=== PATIENT | female | born 1945 | race Caucasian/White ===

== ENCOUNTER 2020-09-12 12:20 | Emergency (ER) | payer MEDICARE, OTHER ==
[2020-09-12] MEDS ORDERED: Hydromorphone 1 mg/ml Injection IV ONE (12:38)
[2020-09-12] MEDS ORDERED: Zofran 4 MG/2 ML VIAL IV ONE (12:38)
[2020-09-12] MEDS ORDERED: TORAdol 30 mg Injection IV ONE (12:38)
[2020-09-12] MEDS ORDERED: Sodium Chloride 0.9% 1000 ML 1,000 ML IV STA (12:38)
--- NOTE | 2020-09-12 12:54 | ERPHSYRPT ---
- History of Present Illness Time Seen by Provider: 09/12/20 12:21 Source: patient Exam Limitations: no limitations Patient Subjective Stated Complaint: Pt states "about a quarter till noon I started to have horrible pain bilat groin. It mes[place]." Triage Nursing Assessment: Pt presented alert and oriented X 3, skin pwd Pt ambulates with an uprigth steady gait, able to speak in clear full sentences. Pt grunting occasionally. Physician History: Patient is here with lower abdominal pain and cramping. Patient states that this started earlier today. She describes it as a burning sensation. She has no falls or trauma. Some burning, pain with urination. Location: lower abdominal pain Quality: burning, cramping Radiation: none Severity: moderate Duration: earlier this morning Timing: gradual Modifying factors/associated signs and symptoms: none tried Timing/Duration: today Activites at Onset: eating, rest Quality: burning Onset Location: RLQ, LLQ Allergies/Adverse Reactions: celecoxib [From Celebrex] Allergy (Intermediate, Verified 09/12/20 12:43) Rash ciprofloxacin [From Cipro] Allergy (Intermediate, Verified 09/12/20 12:43) hives and swelling erythromycin base Allergy (Intermediate, Verified 09/12/20 12:43) nausea, dizzy levofloxacin Allergy (Intermediate, Verified 09/12/20 12:43) nauea, dizzy tramadol Allergy (Intermediate, Verified 09/12/20 12:43) Nausea zolpidem [From Ambien] Allergy (Intermediate, Verified 09/12/20 12:43) insomnia prednisone Adverse Reaction (Intermediate, Verified 09/12/20 12:43) anxiety roflumilast [From Daliresp] Adverse Reaction (Intermediate, Verified 09/12/20 12:43) Nausea Home Medications: Amlodipine Besylate [Norvasc] 5 mg PO DAILY 09/12/20 [History] Fluticasone/Umeclidin/Vilanter [Trelegy Ellipta 100-62.5-25] 1 tab PO DAILY 09/12/20 [History] Ipratropium/Albuterol Sulfate [Iprat-Albut 0.5-3(2.5) mg/3 ml] 3 ml IH DAILY 09/12/20 [History] Levothyroxine Sodium [Synthroid] 25 mcg PO DAILY 09/12/20 [History] Losartan Potassium [Cozaar] 100 mg PO DAILY 09/12/20 [History] Montelukast Sodium 10 mg [Singulair 10 MG] 10 mg PO DAILY 09/12/20 [History] Omeprazole 40 mg PO DAILY 09/12/20 [History] Promethazine HCl 25 mg PO DAILY 09/12/20 [History] Ropinirole HCl 1 mg PO DAILY 09/12/20 [History] Sertraline HCl 50 mg [Zoloft 50 mg Tablet] 50 mg PO DAILY 09/12/20 [History] Simvastatin 20 mg PO DAILY 09/12/20 [History] Warfarin Sodium [Jantoven] 5 mg PO DAILY 09/12/20 [History] Hx Tetanus, Diphtheria Vaccination/Date Given: Yes Hx Influenza Vaccination/Date Given: Yes Hx Pneumococcal Vaccination/Date Given: Yes Immunizations Up to Date: Yes Travel Risk - International Travel Have you traveled outside of the country in past 3 weeks: No - Coronavirus Screening Are you exhibiting any of the following symptoms?: No Close contact with a COVID-19 positive Pt in past 14-21 Days: No - Past Medical History Pertinent Past Medical History: Yes Neurological History: No Pertinent History ENT History: Cataracts Cardiac History: High Cholesterol, Hypertension Respiratory History: COPD Endocrine Medical History: Hypothyroidism Musculoskeletal History: No Pertinent History GI Medical History: GERD History: No Pertinent History Psycho-Social History: No Pertinent History Female Reproductive Disorders: No Pertinent History - Past Surgical History Past Surgical History: Yes Other Surgical History: hysterectomy. tonsils. ovarian cyst. appi. shoulder bone spur rumoved - Social History Smoking Status: Never smoker Exposure to second hand smoke: Yes Drug Use: none Patient Lives Alone: No - Review of Systems Constitutional: No Fever, No Chills Eyes: No Symptoms Ears, Nose, & Throat: No Symptoms Respiratory: No Cough, No Dyspnea Cardiac: No Chest Pain, No Edema, No Syncope Abdominal/Gastrointestinal: Abdominal Pain, Nausea, No Vomiting, No Diarrhea Genitourinary Symptoms: Dysuria Musculoskeletal: No Back Pain, No Neck Pain Skin: No Rash Neurological: No Dizziness, No Focal Weakness, No Sensory Changes Psychological: No Symptoms Endocrine: No Symptoms All Other Systems: Reviewed and Negative - Nursing Vital Signs Nursing Vital Signs: Initial Vital Signs Temperature 98.4 F 09/12/20 12:33 Pulse Rate 74 09/12/20 12:33 Respiratory Rate 20 09/12/20 12:33 Blood Pressure 193/72 09/12/20 12:33 O2 Sat by Pulse Oximetry 97 09/12/20 12:33 Pain Scale Pain Intensity 5 - Physical Exam General Appearance: no apparent distress, alert Eye Exam: PERRL/EOMI Ears, Nose, Throat Exam: pharynx normal, moist mucous membranes Neck Exam: normal inspection, supple Respiratory Exam: normal breath sounds, lungs clear Cardiovascular Exam: regular rate/rhythm, No edema Gastrointestinal/Abdomen Exam: soft, tenderness, other (mild lower abdominal tenderness) Back Exam: normal inspection, No CVA tenderness Extremity Exam: normal inspection, normal range of motion, No pedal edema Neurologic Exam: alert, oriented x 3, cooperative, sensation nml, No motor deficits Skin Exam: normal color, warm, dry, No rash SpO2: 97 - Course Nursing assessment & vital signs reviewed: Yes EKG Interpreted by Me: Sinus Rhythm Ordered Tests: Active Orders 24 hr Category Date Time Status EKG-ER Only STAT Care 09/12/20 12:38 Active IV Insertion STAT Care 09/12/20 12:38 Active ABDOMEN AND PELVIS W CONTRAST [CT] Stat Exams 09/12/20 12:39 Completed CHEST 2 VIEWS (PA AND LAT) Stat Exams 09/12/20 12:38 Completed AMYLASE Stat Lab 09/12/20 13:00 Completed CBC W DIFF Stat Lab 09/12/20 13:00 Completed CMP Stat Lab 09/12/20 13:00 Completed CULTURE,URINE Stat Lab 09/12/20 12:42 Received LIPASE Stat Lab 09/12/20 13:00 Completed Lactic Acid Stat Lab 09/12/20 12:38 Completed TROPONIN Q3H Lab 09/12/20 13:00 Completed TROPONIN Q3H Lab 09/12/20 15:45 Ordered TROPONIN Q3H Lab 09/12/20 18:45 Ordered TROPONIN Q3H Lab 09/12/20 21:45 Ordered TROPONIN Q3H Lab 09/13/20 00:45 Ordered UA W/RFX UR CULTURE Stat Lab 09/12/20 12:42 Completed Medication Summary Discontinued Medications Generic Name Dose Route Start Last Admin Trade Name Freq PRN Reason Stop Dose Admin Hydromorphone HCl 1 mg 09/12/20 12:38 09/12/20 12:59 Hydromorphone 1 Mg/Ml Injection IV 09/12/20 12:39 1 mg STAT ONE Administration Hydromorphone HCl Confirm 09/12/20 12:56 Hydromorphone 1 Mg/Ml Injection Administered 09/12/20 12:57 Dose 1 mg .ROUTE .STK-MED ONE Sodium Chloride 1,000 mls @ 999 mls/hr 09/12/20 12:38 09/12/20 14:17 Sodium Chloride 0.9% 1000 Ml IV 09/12/20 13:38 Infused .Q1H1M STA Infusion Sodium Chloride Confirm 09/12/20 12:56 Sodium Chloride 0.9% 1000 Ml Administered 09/12/20 12:57 Dose 1,000 mls @ ud .ROUTE .STK-MED ONE Ketorolac Tromethamine 30 mg 09/12/20 12:38 09/12/20 12:58 Toradol 30 Mg Injection IV 09/12/20 12:39 30 mg STAT ONE Administration Ketorolac Tromethamine Confirm 09/12/20 12:56 Toradol 30 Mg Injection Administered 09/12/20 12:57 Dose 30 mg .ROUTE .STK-MED ONE Ondansetron HCl 4 mg 09/12/20 12:38 09/12/20 12:57 Zofran 4 Mg/2 Ml Vial IV 09/12/20 12:39 4 mg STAT ONE Administration Ondansetron HCl Confirm 09/12/20 12:56 Zofran 4 Mg/2 Ml Vial Administered 09/12/20 12:57 Dose 4 mg .ROUTE .STK-MED ONE Lab/Rad Data: Laboratory Result Diagrams 09/12/20 13:00 09/12/20 13:00 Laboratory Results 09/12/20 09/12/20 09/12/20 Range/Units 13:00 13:00 13:00 WBC 9.0 (4.0-10.5) K/mm3 RBC 4.24 (4.1-5.4) M/mm3 Hgb 14.1 (12.0-16.0) gm/dl Hct 41.9 (35-47) % MCV 98.8 (78-100) fl MCH 33.3 H (26-32) pg MCHC 33.7 (32-36) g/dl RDW 13.2 (11.5-14.0) % Plt Count 232 (150-450) K/mm3 MPV 9.6 (7.5-11.0) fl Gran % 55.8 (36.0-66.0) % Eos # (Auto) 0.14 (0-0.5) Absolute Lymphs (auto) 2.66 (1.0-4.6) Absolute Monos (auto) 1.14 (0.0-1.3) Lymphocytes % 29.7 (24.0-44.0) % Monocytes % 12.7 H (0.0-12.0) % Eosinophils % 1.6 (0.00-5.0) % Basophils % 0.2 (0.0-0.4) % Absolute Granulocytes 5.01 (1.4-6.9) Basophils # 0.02 (0-0.4) Sodium 138 (137-145) mmol/L Potassium 3.9 (3.5-5.1) mmol/L Chloride 106 (98-107) mmol/L Carbon Dioxide 26 (22-30) mmol/L Anion Gap 10.5 (5-15) MEQ/L BUN 20 H (7-17) mg/dL Creatinine 0.63 (0.52-1.04) mg/dL Estimated GFR > 60.0 ML/MIN Glucose 107 H (74-106) mg/dL Lactic Acid (0.4-2.0) Calcium 9.1 (8.4-10.2) mg/dL Total Bilirubin 0.60 (0.2-1.3) mg/dL AST 33 (14-36) U/L ALT 32 (0-35) U/L Alkaline Phosphatase 106 (38-126) U/L Troponin I < 0.012 (0.000-0.034) ng/mL Serum Total Protein 7.0 (6.3-8.2) g/dL Albumin 4.1 (3.5-5.0) g/dL Amylase 83 (30-110) U/L Lipase 151 (23-300) U/L Urine Color (YELLOW) Urine Appearance (CLEAR) Urine pH (5-6) Ur Specific [place] (1.005-1.025) Urine Protein (Negative) Urine Ketones (NEGATIVE) Urine Blood (0-5) [place]/ul Urine Nitrite (NEGATIVE) Urine Bilirubin (NEGATIVE) Urine Urobilinogen (0-1) mg/dL Ur Leukocyte Esterase (NEGATIVE) Urine WBC (Auto) (0-5) /HPF Urine RBC (Auto) (0-2) /HPF U Epithel Cells (Auto) (FEW) /HPF Urine Bacteria (Auto) (NEGATIVE) /HPF Urine Mucus (Auto) (NEGATIVE) /HPF Urine Culture Reflexed (NO) Urine Glucose (NEGATIVE) mg/dL 09/12/20 09/12/20 Range/Units 12:42 12:38 WBC (4.0-10.5) K/mm3 RBC (4.1-5.4) M/mm3 Hgb (12.0-16.0) gm/dl Hct (35-47) % MCV (78-100) fl MCH (26-32) pg MCHC (32-36) g/dl RDW (11.5-14.0) % Plt Count (150-450) K/mm3 MPV (7.5-11.0) fl Gran % (36.0-66.0) % Eos # (Auto) (0-0.5) Absolute Lymphs (auto) (1.0-4.6) Absolute Monos (auto) (0.0-1.3) Lymphocytes % (24.0-44.0) % Monocytes % (0.0-12.0) % Eosinophils % (0.00-5.0) % Basophils % (0.0-0.4) % Absolute Granulocytes (1.4-6.9) Basophils # (0-0.4) Sodium (137-145) mmol/L Potassium (3.5-5.1) mmol/L Chloride (98-107) mmol/L Carbon Dioxide (22-30) mmol/L Anion Gap (5-15) MEQ/L BUN (7-17) mg/dL Creatinine (0.52-1.04) mg/dL Estimated GFR ML/MIN Glucose (74-106) mg/dL Lactic Acid 1.2 (0.4-2.0) Calcium (8.4-10.2) mg/dL Total Bilirubin (0.2-1.3) mg/dL AST (14-36) U/L ALT (0-35) U/L Alkaline Phosphatase (38-126) U/L Troponin I (0.000-0.034) ng/mL Serum Total Protein (6.3-8.2) g/dL Albumin (3.5-5.0) g/dL Amylase (30-110) U/L Lipase (23-300) U/L Urine Color YELLOW (YELLOW) Urine Appearance SLIGHTLY CLOUDY (CLEAR) Urine pH 5.0 (5-6) Ur Specific [place] 1.024 (1.005-1.025) Urine Protein 30 (Negative) Urine Ketones NEGATIVE (NEGATIVE) Urine Blood LARGE (0-5) [place]/ul Urine Nitrite NEGATIVE (NEGATIVE) Urine Bilirubin NEGATIVE (NEGATIVE) Urine Urobilinogen NEGATIVE (0-1) mg/dL Ur Leukocyte Esterase SMALL (NEGATIVE) Urine WBC (Auto) 6-10 (0-5) /HPF Urine RBC (Auto) >101 (0-2) /HPF U Epithel Cells (Auto) NONE (FEW) /HPF Urine Bacteria (Auto) FEW (NEGATIVE) /HPF Urine Mucus (Auto) SLIGHT (NEGATIVE) /HPF Urine Culture Reflexed YES (NO) Urine Glucose NEGATIVE (NEGATIVE) mg/dL - Progress Progress: improved Progress Note: 09/12/20 12:53 differential diagnosis includes kidney stone, compression fracture, infection, UTI, triple AAA - basic labs including: CBC, lipase, CMP, UA - insert IV for fluids, pain meds, nausea control - consider imaging: CT ab/pelvis, CXR - EKG, trop 09/12/20 14:43 CT scan demonstrates a kidney stone. The urine reflects this. Nonobstructing no signs of UTI. No red flag symptoms for kidney stone. At this point time patient most likely passed a stone on her own. Pain is improved. She has had several urinations here. Therefore, she is passing urine and making urine. From my perspective she is safe to go home. She will be discharged to the hospital floor as her is already admitted here. Plan of care was discussed with patient and all questions answered. The patient is agreeable to be discharged home and both verbal and printed discharge instructions were provided.The patient agreed to seek outpatient follow up as discussed. The patient was given strict instructions to return to the emergency department for worsening symptoms or any other emergent concerns. The patient verbalized understanding. Counseled pt/family regarding: lab results, diagnosis, need for follow-up, rad results - Departure Departure Disposition: Extended Care Facility Clinical Impression: Kidney stone on right side Condition: Stable Critical Care Time: No Referrals: JESSICA CERRATO JR [Primary Care Provider] - Instructions: Kidney Stones in Adults
[2020-09-12] MEDS ORDERED: Zofran 4 MG/2 ML VIAL ONE (12:56)
[2020-09-12] MEDS ORDERED: Hydromorphone 1 mg/ml Injection ONE (12:56)
[2020-09-12] MEDS ORDERED: Sodium Chloride 0.9% 1000 ML 1,000 ML ONE (12:56)
[2020-09-12] MEDS ORDERED: TORAdol 30 mg Injection ONE (12:56)
[2020-09-12 13:06] LABS: Absolute Neutrophil Ct (ANC) 5.01 (1.4-6.9); BASOPHIL % 0.2 % (0.0-0.4); Basophil (Absolute #) 0.02 (0-0.4); Eosinophil % 1.6 % (0.00-5.0); Eosinophil (Absolute #) 0.14 (0-0.5); Hematocrit 41.9 % (35-47); Hemoglobin 14.1 gm/dl (12.0-16.0); Lymphocyte (Absolute #) 2.66 (1.0-4.6); Lymphocytes % 29.7 % (24.0-44.0); Mean Cell Volume 98.8 fl (78-100); Mean Corpuscular Hemoglobin 33.3 pg (26-32); Mean Corpuscular Hgb Concent. 33.7 g/dl (32-36); Mean Platelet Volume 9.6 fl (7.5-11.0); Monocyte (Absolute #) 1.14 (0.0-1.3); Monocytes % 12.7 % (0.0-12.0); Neutrophil % 55.8 % (36.0-66.0); Platelet Count 232 K/mm3 (150-450); Red Blood Count 4.24 M/mm3 (4.1-5.4); Red Cell Distribution Width 13.2 % (11.5-14.0)
[2020-09-12 13:17] LABS: Appearance SLIGHTLY CLOUDY (CLEAR); Bacteria FEW /HPF (NEGATIVE); Bilirubin NEGATIVE (NEGATIVE); Blood LARGE Ery/ul (0-5); Glucose NEGATIVE (NEGATIVE); Ketones NEGATIVE (NEGATIVE); Leukocyte Esterase SMALL (NEGATIVE); Mucus SLIGHT /HPF (NEGATIVE); Nitrite NEGATIVE (NEGATIVE); Protein,Urine Dip 30 (Negative); Specific Gravity 1.024 (1.005-1.025); Urobilinogen NEGATIVE mg/dL (0-1)
[2020-09-12 13:18] LABS: RBC >101 /HPF (0-2)
[2020-09-12 13:19] LABS: ALBUMIN 4.1 g/dL (3.5-5.0); ALKALINE PHOSPHATASE 106 U/L (38-126); AMYLASE 83 U/L (30-110); ANION GAP 10.5 MEQ/L (5-15); BLOOD UREA NITROGEN 20 mg/dL (7-17); CHLORIDE 106 mmol/L (98-107); Calcium 9.1 mg/dL (8.4-10.2); Carbon Dioxide 26 mmol/L (22-30); Creatinine 1 0.63 mg/dL (0.52-1.04); EST GLOMERULAR FILTRATION RATE > 60.0 ML/MIN; Glucose 107 mg/dL (74-106); LIPASE 151 U/L (23-300); Potassium 3.9 mmol/L (3.5-5.1); SGOT/AST 33 U/L (14-36); SGPT/ALT 32 U/L (0-35); SODIUM 138 mmol/L (137-145)
[2020-09-12 14:25] VITALS: BP 156/73; PULSE 67
--- NOTE | 2020-09-12 14:27 | XRAY ---
Indication: Upper abdomen pain. Comparison: None PA/lateral chest demonstrates mild bibasilar infiltrates versus atelectasis. Remaining heart and lungs are unremarkable with a few incidental tiny calcified granulomas. Bony thorax intact.
--- NOTE | 2020-09-12 14:37 | XRAY ---
Indication: Bilateral pelvic pain. Multiple contiguous axial images obtained through the abdomen and pelvis using 80 cc Isovue 370 contrast. Comparison: None Lung bases demonstrates bibasilar infiltrates and atelectasis left greater than right. No effusion. Incidental tiny lingula calcified granuloma. Heart is not enlarged. Noncontrasted stomach and bowel loops appear nonobstructed. Scattered sigmoid and lesser degree descending colonic diverticulosis. Appendectomy and hysterectomy reported. No free fluid/air. 2 mm right UVJ calculus. Proximal right ureter is slightly prominent up to 5-6 mm consistent with partial obstructive uropathy. Right kidney demonstrates 2 and left kidney demonstrates 1 calculus, largest on the left measuring 1 cm. No hydronephrosis or perinephric fluid. Mild diffuse fatty liver. Remaining liver, gallbladder, pancreas, spleen, adrenal glands, kidneys, ureters, and bladder appear unremarkable. Mild scattered aortoiliac calcifications including origin both main renal arteries. A few periaortic calcified nodes. No pathologic retroperitoneal lymphadenopathy. Osseous structures intact with mild degenerative changes throughout the thoracolumbar spine. Anterior right femur head demonstrates 1 cm subcortical cyst. Impression: 1. 2 mm right UVJ calculus producing partial obstruction. Additional bilateral renal calculi. 2. Bibasilar infiltrates/atelectasis. 3. Incidental fatty liver, colonic diverticulosis, chronic bony findings, and old granulomatous disease.
[2020-09-12 14:43] VITALS: O2SAT 97
== END 2020-09-12 15:02 | disposition home or self-care (01) ==
LOC: ED 12:20
DX: N20.0 Calculus of kidney (principal); I10 Essential (primary) hypertension; E03.9 Hypothyroidism, unspecified; J44.9 Chronic obstructive pulmonary disease, unspecified; E78.00 Pure hypercholesterolemia, unspecified; K21.9 Gastro-esophageal reflux disease without esophagitis; Z79.899 Other long term (current) drug therapy
CPT/HCPCS: 36000; 36415; 71046; 74177; 80053; 81001; 82150; 83605; 83690; 84484; 85025; 87086; 93005; 96360; 96374; 96375; 99284; J1170; J1885; J2405

== ENCOUNTER 2022-11-17 19:58 | Emergency (ER) | payer MEDICARE, OTHER ==
[2022-11-17] MEDS ORDERED: Sodium Chloride 0.9% 1000 ML 1,000 ML IV SCH (23:00)
[2022-11-17] MEDS ORDERED: TYLENOL EXTRA STRENGTH 500 MG PO ONE (23:07)
[2022-11-17] MEDS ORDERED: TYLENOL EXTRA STRENGTH 500 MG ONE (23:12)
[2022-11-17] MEDS ORDERED: Sodium Chloride 0.9% 1000 ML 1,000 ML ONE (23:12)
[2022-11-17 23:19] LABS: Appearance Cloudy (Clear); Bacteria None Seen /HPF (None Seen); Bilirubin Negative (Negative); Blood Large (Negative); Epithelial Cells None Seen /HPF (None Seen); Glucose, Urine Negative (Negative); Ketones Negative (Negative); Leukocyte Esterase Small (Negative); Nitrite Negative (Negative); Ph 6.5 (4.6-8.0); Protein,Urine Dip 100 (Negative); RBC >100 /HPF (0-5); Urobilinogen 0.2 mg/dL (0.2); WBC 21-50 /HPF (0-5)
[2022-11-17 23:20] LABS: ADD URINE CULTURE? YES (NO)
[2022-11-17 23:45] LABS: Absolute Neutrophil Ct (ANC) 9.66 x10^3/uL (1.4-6.9); BASOPHIL % 0.2 % (0.0-0.4); Basophil (Absolute #) 0.03 x10^3/uL (0-0.4); Eosinophil % 0.3 % (0.00-5.0); Eosinophil (Absolute #) 0.04 x10^3/uL (0-0.5); Hematocrit 39.7 % (35-47); Hemoglobin 13.4 g/dL (12.0-16.0); IMMATURE GRAN # 0.05 x10^3u/L (0.00-0.03); IMMATURE GRAN % 0.4 % (0.00-0.4); Lymphocyte (Absolute #) 1.61 x10^3/uL (1.0-4.6); Lymphocytes % 13.2 % (24.0-44.0); Mean Cell Volume 96.1 fL (78-100); Mean Corpuscular Hemoglobin 32.4 pg (26-32); Mean Corpuscular Hgb Concent. 33.8 g/dL (32-36); Mean Platelet Volume 9.3 fL (7.5-11.0); Monocytes % 6.6 % (0.0-12.0); Neutrophil % 79.3 % (36.0-66.0); Platelet Count 289 x10^3/uL (150-450); Red Blood Count 4.13 x10^6/uL (4.1-5.4); Red Cell Distribution Width 12.3 % (11.5-14.0); White Blood Count 12.2 x10^3/uL (4.0-10.5)
--- NOTE | 2022-11-17 23:45 | ERPHSYRPT ---
- History of Present Illness Time Seen by Provider: 11/17/22 22:00 Historian: patient Exam Limitations: no limitations Patient Subjective Stated Complaint: right sided abdominal and right flank pain radiating to groin, N/V, frequent urination with inability to empty bladder Triage Nursing Assessment: Pt had recent right sided kidney stone that she stated was "blasted" 11/08/22 and subsequently had her right kidney stent removed today at [facility]. Dr. Queen performed procedures. Pt A&OX3. Skin color WNL. Bowel sounds present x 4. Abdomen tender on right side. Physician History: Patient is a 77-year-old female presents emergency department for evaluation of right sided abdominal and flank pain. Pain started today. Pain described as an ache that radiates to her right groin. Pain is associated with nausea and vomiting. Patient has also been experiencing frequent urination and inability to empty her bladder completely. Patient reports that she had a lithotripsy performed on a right kidney stone on November 08, 2022. Patient had her stent removed today by Dr. Avinash srinivasan at [facility]. Patient's symptoms are constant. Symptoms are moderate in intensity. No specific worsening or i mproving factors. Patient denies a history of the same. She voices no other complaints or concerns at this time. Patient disclaimer Timing/Duration: today Activities at Onset: none Quality: aching Abdominal Pain Onset Location: flank Pain Radiation: other (Pain radiates to right groin area.) Severity of Pain-Max: moderate Severity of Pain-Current: mild Modifying Factors: Improves With: nothing Associated Symptoms: denies symptoms Previous symptoms: no prior history Allergies/Adverse Reactions: celecoxib [From Celebrex] Allergy (Intermediate, Verified 11/17/22 21:56) Rash ciprofloxacin [From Cipro] Allergy (Intermediate, Verified 11/17/22 21:56) hives and swelling erythromycin base Allergy (Intermediate, Verified 11/17/22 21:56) nausea, dizzy levofloxacin Allergy (Intermediate, Verified 11/17/22 21:56) nauea, dizzy tramadol Allergy (Intermediate, Verified 11/17/22 21:56) Nausea zolpidem [From Ambien] Allergy (Intermediate, Verified 11/17/22 21:56) insomnia prednisone Adverse Reaction (Intermediate, Verified 11/17/22 21:56) anxiety roflumilast [From Daliresp] Adverse Reaction (Intermediate, Verified 11/17/22 21:56) Nausea Home Medications: Amlodipine Besylate [Norvasc] 5 mg PO DAILY 09/12/20 [History] Fluticasone/Umeclidin/Vilanter [Trelegy Ellipta 100-62.5-25] 1 tab PO DAILY 09/12/20 [History] Ipratropium/Albuterol Sulfate [Iprat-Albut 0.5-3(2.5) mg/3 ml] 3 ml IH DAILY 09/12/20 [History] Levothyroxine Sodium [Synthroid] 25 mcg PO DAILY 09/12/20 [History] Losartan Potassium [Cozaar] 100 mg PO DAILY 09/12/20 [History] Montelukast Sodium 10 mg [Singulair 10 MG] 10 mg PO DAILY 09/12/20 [History] Omeprazole 40 mg PO DAILY 09/12/20 [History] Promethazine HCl 25 mg PO DAILY 09/12/20 [History] Ropinirole HCl 1 mg PO DAILY 09/12/20 [History] Sertraline HCl 50 mg [Zoloft 50 mg Tablet] 50 mg PO DAILY 09/12/20 [History] Simvastatin 20 mg PO DAILY 09/12/20 [History] Warfarin Sodium [Jantoven] 5 mg PO DAILY 09/12/20 [History] Hx Tetanus, Diphtheria Vaccination/Date Given: Yes Hx Influenza Vaccination/Date Given: Yes Hx Pneumococcal Vaccination/Date Given: Yes Travel Risk - International Travel Have you traveled outside of the country in past 3 weeks: No - Coronavirus Screening Are you exhibiting any of the following symptoms?: No Close contact with a COVID-19 positive Pt in past 14-21 Days: No - Vaccine Status Have you recieved a Covid-19 vaccination: Yes Statistics Manager: Moderna - Vaccination Dates Date of 2cond Vaccination (if applicable): 2019 - Review of Systems Constitutional: No Symptoms, No Fever, No Chills Eyes: No Symptoms Ears, Nose, & Throat: No Symptoms Respiratory: No Symptoms, No Cough, No Dyspnea Cardiac: No Symptoms, No Chest Pain, No Edema, No Syncope Abdominal/Gastrointestinal: No Symptoms, No Abdominal Pain, No Nausea, No Vomiting, No Diarrhea Genitourinary Symptoms: No Symptoms, No Dysuria Musculoskeletal: No Symptoms, No Back Pain, No Neck Pain Skin: No Symptoms, No Rash Neurological: No Symptoms, No Dizziness, No Focal Weakness, No Sensory Changes Psychological: No Symptoms Endocrine: No Symptoms Hematologic/Lymphatic: No Symptoms Immunological/Allergic: No Symptoms All Other Systems: Reviewed and Negative - Past Medical History Pertinent Past Medical History: Yes Neurological History: No Pertinent History ENT History: Cataracts Cardiac History: Coronary Artery Disease, High Cholesterol, Hypertension Respiratory History: COPD Endocrine Medical History: Hypothyroidism Musculoskeletal History: No Pertinent History GI Medical History: GERD History: Other Psycho-Social History: No Pertinent History Female Reproductive Disorders: No Pertinent History Other Medical History: kidney stone - Past Surgical History Past Surgical History: Yes Neuro Surgical History: No Pertinent History Cardiac: Cardiac Stent Respiratory: No Pertinent History Gastrointestinal: Appendectomy Genitourinary: Other Musculoskeletal: No Pertinent History Female Surgical History: Hysterectomy Other Surgical History: ovarian cyst, left shoulder bone spur rumoved. right sided kidney stone "blasted" 11/08/22 with stent placement, stent removed 11/17/22 - Social History Smoking Status: Never smoker Exposure to second hand smoke: Yes Drug Use: none Patient Lives Alone: No - Nursing Vital Signs Nursing Vital Signs: Initial Vital Signs Temperature 98.4 F 11/17/22 21:58 Pulse Rate 66 11/17/22 21:58 Respiratory Rate 18 11/17/22 21:58 Blood Pressure 213/79 11/17/22 21:58 O2 Sat by Pulse Oximetry 97 11/17/22 21:58 Pain Scale Pain Intensity 4 - Physical Exam General Appearance: no apparent distress, alert Eye Exam: PERRL/EOMI, eyes nml inspection Ears, Nose, Throat Exam: normal ENT inspection, pharynx normal, moist mucous membranes Neck Exam: normal inspection, non-tender, supple, full range of motion Respiratory Exam: normal breath sounds, lungs clear, airway intact, No respiratory distress Cardiovascular Exam: regular rate/rhythm, normal heart sounds Gastrointestinal/Abdomen Exam: soft, No tenderness, No mass Back Exam: normal inspection, normal range of motion, No CVA tenderness, No vertebral tenderness Extremity Exam: normal inspection, normal range of motion, pelvis stable Neurologic Exam: alert, oriented x 3, cooperative, normal mood/affect, nml cerebellar function, sensation nml, No motor deficits Skin Exam: normal color, warm, dry SpO2 Interpretation: normal SpO2: 96 O2 Delivery: Room Air - Course Nursing assessment & vital signs reviewed: Yes - CT Exams Abdomen/Pelvis CT Interpretation: Tele-radiologist Report (Multiple bilateral renal stones. Mild right hydronephrosis and hydroureter. A few small stones in the mid right ureter. The largest measuring 4 mm. 2.7 mm distal right ureteral stone. Moderate sigmoid diverticulosis. Dense atherosclerotic vascular calcifications. Gas in the bladder likely fro) Ordered Tests: Active Orders 24 hr Category Date Time Status IV Insertion STAT Care 11/17/22 22:59 Active ABDOMEN AND PELVIS W/0 CONTRAS [CT] Stat Exams 11/17/22 22:59 Taken CBC W DIFF Stat Lab 11/17/22 22:00 Completed CMP Stat Lab 11/17/22 22:00 Completed CULTURE,URINE Stat Lab 11/17/22 23:04 Received TROPONIN Q4H Lab 11/17/22 22:00 Completed UA W/RFX UR CULTURE Stat Lab 11/17/22 23:04 Completed Medication Summary Generic Name Dose Route Start Last Admin Trade Name Freq PRN Reason Stop Dose Admin Sodium Chloride 1,000 mls @ 100 mls/hr 11/17/22 23:00 11/17/22 23:14 Sodium Chloride 0.9% 1000 Ml IV 12/17/22 22:59 100 mls/hr .Q10H SILVER Administration Discontinued Medications Generic Name Dose Route Start Last Admin Trade Name Freq PRN Reason Stop Dose Admin Acetaminophen 1,000 mg 11/17/22 23:07 11/17/22 23:14 Acetaminophen 500 Mg Tablet PO 11/17/22 23:08 1,000 mg STAT ONE Administration Acetaminophen Confirm 11/17/22 23:12 Acetaminophen 500 Mg Tablet Administered 11/17/22 23:13 Dose 1,000 mg .ROUTE .STK-MED ONE Ceftriaxone Sodium/Dextrose 1 g in 50 mls @ 100 mls/hr 11/17/22 23:46 11/18/22 02:05 Rocephin 1 Gm-D5w 50 Ml Bag IV 11/18/22 00:15 Infused STAT STA Infusion Ceftriaxone Sodium/Dextrose Confirm 11/18/22 00:13 Rocephin 1 Gm-D5w 50 Ml Bag Administered 11/18/22 00:14 Dose 1 g in 50 mls @ ud IV .STK-MED ONE Lab/Rad Data: Laboratory Result Diagrams 11/17/22 22:00 11/17/22 22:00 Laboratory Results 11/17/22 11/17/22 11/17/22 Range/Units 23:04 22:00 22:00 WBC (4.0-10.5) x10^3/uL RBC (4.1-5.4) x10^6/uL Hgb (12.0-16.0) g/dL Hct (35-47) % MCV (78-100) fL MCH (26-32) pg MCHC (32-36) g/dL RDW (11.5-14.0) % Plt Count (150-450) x10^3/uL MPV (7.5-11.0) fL Gran % (36.0-66.0) % Immature Gran % (Auto) (0.00-0.4) % Nucleat RBC Rel Count (0.00-0.1) % Eos # (Auto) (0-0.5) x10^3/uL Immature Gran # (Auto) (0.00-0.03) x10^3u/L Absolute Lymphs (auto) (1.0-4.6) x10^3/uL Absolute Monos (auto) (0.0-1.3) x10^3/uL Absolute Nucleated RBC (0.00-0.01) x10^3u/L Lymphocytes % (24.0-44.0) % Monocytes % (0.0-12.0) % Eosinophils % (0.00-5.0) % Basophils % (0.0-0.4) % Absolute Granulocytes (1.4-6.9) x10^3/uL Basophils # (0-0.4) x10^3/uL Sodium 139 (137-145) mmol/L Potassium 4.0 (3.5-5.1) mmol/L Chloride 104 (98-107) mmol/L Carbon Dioxide 28 (22-30) mmol/L Anion Gap 10.8 (5-15) MEQ/L BUN 14 (7-17) mg/dL Creatinine 0.60 (0.52-1.04) mg/dL Estimated GFR > 60.0 ML/MIN Glucose 136 H (74-106) mg/dL Calcium 8.8 (8.4-10.2) mg/dL Total Bilirubin 0.90 (0.2-1.3) mg/dL AST 33 (14-36) U/L ALT 39 H (0-35) U/L Alkaline Phosphatase 124 (38-126) U/L Troponin I < 0.012 (0.000-0.034) ng/mL Serum Total Protein 7.0 (6.3-8.2) g/dL Albumin 4.0 (3.5-5.0) g/dL Urine Color Yellow (Yellow) Urine Appearance Cloudy A (Clear) Urine pH 6.5 (4.6-8.0) Ur Specific [place] 1.010 (1.005-1.030) Urine Protein 100 A (Negative) Urine Glucose (UA) Negative (Negative) mg/dL Urine Ketones Negative (Negative) Urine Blood Large A (Negative) Urine Nitrite Negative (Negative) Urine Bilirubin Negative (Negative) Urine Urobilinogen 0.2 (0.2) mg/dL Ur Leukocyte Esterase Small A (Negative) U Hyaline Cast (Auto) 3-5 A (0-2) /LPF Urine Microscopic RBC >100 A (0-5) /HPF Urine Microscopic WBC 21-50 A (0-5) /HPF Ur Epithelial Cells None Seen (None Seen) /HPF Urine Bacteria None Seen (None Seen) /HPF Urine Culture Reflexed YES (NO) 11/17/22 Range/Units 22:00 WBC 12.2 H (4.0-10.5) x10^3/uL RBC 4.13 (4.1-5.4) x10^6/uL Hgb 13.4 (12.0-16.0) g/dL Hct 39.7 (35-47) % MCV 96.1 (78-100) fL MCH 32.4 H (26-32) pg MCHC 33.8 (32-36) g/dL RDW 12.3 (11.5-14.0) % Plt Count 289 (150-450) x10^3/uL MPV 9.3 (7.5-11.0) fL Gran % 79.3 H (36.0-66.0) % Immature Gran % (Auto) 0.4 (0.00-0.4) % Nucleat RBC Rel Count 0.0 (0.00-0.1) % Eos # (Auto) 0.04 (0-0.5) x10^3/uL Immature Gran # (Auto) 0.05 H (0.00-0.03) x10^3u/L Absolute Lymphs (auto) 1.61 (1.0-4.6) x10^3/uL Absolute Monos (auto) 0.80 (0.0-1.3) x10^3/uL Absolute Nucleated RBC 0.00 (0.00-0.01) x10^3u/L Lymphocytes % 13.2 L (24.0-44.0) % Monocytes % 6.6 (0.0-12.0) % Eosinophils % 0.3 (0.00-5.0) % Basophils % 0.2 (0.0-0.4) % Absolute Granulocytes 9.66 H (1.4-6.9) x10^3/uL Basophils # 0.03 (0-0.4) x10^3/uL Sodium (137-145) mmol/L Potassium (3.5-5.1) mmol/L Chloride (98-107) mmol/L Carbon Dioxide (22-30) mmol/L Anion Gap (5-15) MEQ/L BUN (7-17) mg/dL Creatinine (0.52-1.04) mg/dL Estimated GFR ML/MIN Glucose (74-106) mg/dL Calcium (8.4-10.2) mg/dL Total Bilirubin (0.2-1.3) mg/dL AST (14-36) U/L ALT (0-35) U/L Alkaline Phosphatase (38-126) U/L Troponin I (0.000-0.034) ng/mL Serum Total Protein (6.3-8.2) g/dL Albumin (3.5-5.0) g/dL Urine Color (Yellow) Urine Appearance (Clear) Urine pH (4.6-8.0) Ur Specific [place] (1.005-1.030) Urine Protein (Negative) Urine Glucose (UA) (Negative) mg/dL Urine Ketones (Negative) Urine Blood (Negative) Urine Nitrite (Negative) Urine Bilirubin (Negative) Urine Urobilinogen (0.2) mg/dL Ur Leukocyte Esterase (Negative) U Hyaline Cast (Auto) (0-2) /LPF Urine Microscopic RBC (0-5) /HPF Urine Microscopic WBC (0-5) /HPF Ur Epithelial Cells (None Seen) /HPF Urine Bacteria (None Seen) /HPF Urine Culture Reflexed (NO) - Progress Progress: improved Progress Note: We contacted Dr. Edwards who accepts transfer to [facility]. Case discussed with ER physician at [facility] who accepts transfer. Plan of care discussed with patient. Patient agrees to transfer to [facility] for further evaluation and treatment. Portions of this note were created with voice recognition technology. There may be grammatical, spelling, punctuation or sound alike errors Patient is 77-year-old female presents to our ED for evaluation of right-sided flank pain. Patient had a lithotripsy performed on November 08. Patien was removed today. Patient now has recurrent kidney stones x2 at the right ureter. Pyuria observed in the urine presumably a urinary tract infection. Physical exam reveals right-sided CVA tenderness. Right-sided flank pain. Patient's complaint is acute. Complexity of complaint is moderate. No significant comorbidities contribute to patient's presentation. Laboratory work-up includes CBC, CMP, troponin, urinalysis. Patient has leukocytosis of 12.2. Patient received a dose of Rocephin in our ED. Patient also received IV fluids and a dose of oral Tylenol. Case discussed with Dr. Edwards partner of Dr. Barnard who advises transfer to [facility]. Case discussed with ER physician who accepted transfer. Plan of care discussed with patient. She agrees to transfer to [facility] for further evaluation and treatment. Patient served as an independent historian. Time spent for transfer was appr oximately 15 minutes. Patient reassessed. She is resting comfortably. No active pain at this time. Portions of this note were created with voice recognition technology. There may be grammatical, spelling, punctuation or sound alike errors I 11/18/22 05:36 Counseled pt/family regarding: lab results, diagnosis, rad results - Departure Departure Disposition: Home Clinical Impression: UTI (urinary tract infection), Ureterolithiasis, Hydroureter, Leukocytosis Condition: Stable Critical Care Time: No Referrals: JESSICA CERRATO JR [Primary Care Provider] - Follow up/PCP as directed
[2022-11-17] MEDS ORDERED: ROCEPHIN 1 Gm-D5w 50 ml Bag** 1 G/50 ML IVPB IV STA (23:46)
[2022-11-18 00:01] LABS: ALKALINE PHOSPHATASE 124 U/L (38-126); ANION GAP 10.8 MEQ/L (5-15); BLOOD UREA NITROGEN 14 mg/dL (7-17); CHLORIDE 104 mmol/L (98-107); Calcium 8.8 mg/dL (8.4-10.2); Carbon Dioxide 28 mmol/L (22-30); EST GLOMERULAR FILTRATION RATE > 60.0 ML/MIN; Glucose 136 mg/dL (74-106); SGOT/AST 33 U/L (14-36); SGPT/ALT 39 U/L (0-35); SODIUM 139 mmol/L (137-145)
[2022-11-18] MEDS ORDERED: ROCEPHIN 1 Gm-D5w 50 ml Bag** 1 G/50 ML IVPB IV ONE (00:13)
[2022-11-18 02:45] VITALS: BP 188/77; PULSE 76
[2022-11-18 05:36] VITALS: O2SAT 96
--- NOTE | 2022-11-18 09:14 | XRAY ---
Indication: Right flank pain. Nausea and vomiting. Dysuria. Multiple contiguous axial images obtained through the abdomen and pelvis without contrast. Comparison: September 12, 2020 Lung bases again demonstrates mild bibasilar subsuming atelectasis/scarring less than before. Stable tiny lingula calcified granuloma. Heart not enlarged. New small hiatal hernia. Noncontrasted stomach and bowel loops nonobstructed again with scattered sigmoid diverticulosis without diverticulitis. Again appendectomy and hysterectomy. No free fluid/air. Right mid ureter demonstrates 2-3 new calculi, approximately L4-L5 level. Largest measures 5 mm. Distal right ureter also demonstrates new 4 mm calculus approximately 3 cm proximal to UVJ. Diffuse right hydroureter up to 1.2 cm along with mild hydronephrosis consistent with obstructive uropathy. Again a few bilateral renal calculi, largest left kidney measuring 1 cm. Posterior urinary bladder demonstrates new 2 mm midline calculus. Urinary bladder demonstrates new small intraluminal air either iatrogenic from recent catheterization versus gas-forming infection. Again mild diffuse fatty liver. Remaining liver, gallbladder, pancreas, spleen, and adrenal glands are unremarkable for noncontrast exam. Again mild/moderate scattered aortoiliac calcifications without AAA. A few stable incidental small periaortic calcified nodes. Osseous structures intact again with osteopenia and mild degenerative changes throughout the spine. Stable right femur head subcortical cyst. Impression: 1. New right mid and distal micro-calculi producing obstructive uropathy as detailed. Also new urinary bladder punctate calculus. Again additional bilateral renal calculi. 2. New urinary bladder intraluminal air either iatrogenic versus gas-forming infection. 3. New small hiatal hernia. 4. Again chronic findings including fatty liver, colonic diverticulosis, chronic bony findings, and old granulomatous disease. Comment: Preliminary interpretation made by [facility]. No critical discrepancy.
== END 2022-11-18 06:12 | disposition short-term general hospital (02) ==
LOC: ED 19:58
DX: N13.4 Hydroureter (principal); N20.1 Calculus of ureter; N39.0 Urinary tract infection, site not specified; D72.829 Elevated white blood cell count, unspecified; R10.9 Unspecified abdominal pain; R11.2 Nausea with vomiting, unspecified; R35.0 Frequency of micturition; Z87.442 Personal history of urinary calculi; E78.5 Hyperlipidemia, unspecified; I10 Essential (primary) hypertension; Z79.01 Long term (current) use of anticoagulants; Z79.899 Other long term (current) drug therapy
CPT/HCPCS: 36000; 36415; 74176; 80053; 81001; 84484; 85025; 87077; 87086; 96365; 99285; J0696; A9270-GY